=== PATIENT | female | born 1970 | race Caucasian/White ===

== ENCOUNTER 2025-04-29 10:24 | Outpatient (CLI) | payer BC, SELFPAY ==
[2025-05-02 12:00] LABS: HPV Source Endocervical
[2025-05-05 12:44] LABS: Pap Test Digital Imaging Done
== END 2025-04-29 10:25 | disposition home or self-care (01) ==
PROVIDERS: Visit Provider Family Medicine
DX: Z12.11 Encounter for screening for malignant neoplasm of colon (principal); Z12.4 Encounter for screening for malignant neoplasm of cervix; Z00.00 Encounter for general adult medical examination without abnormal findings; Z11.59 Encounter for screening for other viral diseases
CPT/HCPCS: 80053; 80061; 86803; 87624; 87625; 88141; 88142; 88175

== ENCOUNTER 2025-06-01 13:57 | Outpatient (CLI) | payer BC, SELFPAY | END 2025-06-01 13:58 | disposition home or self-care (01) | LOC: NFLDREF 06-06 18:04 | PROVIDERS: PCP Family Medicine; Referring Provider Family Medicine; Visit Provider Family Medicine | DX: B35.1 Tinea unguium (principal) | CPT/HCPCS: 80053 ==